=== PATIENT | female | born 1980 | race Caucasian/White ===

== ENCOUNTER 2017-01-08 19:44 | Emergency (ER) | payer SELFPAY ==
--- NOTE | 2017-01-08 21:19 | ED CLINICAL REPORT ---
Clinical Report - Physicians/Mid Levels [facility] [address] [place] [address] 01/08/2017 19:45 Patient: JUSTYNA BOONE Time Seen: 20:50. Arrived- By private vehicle. Historian- patient. HISTORY OF PRESENT ILLNESS Chief Complaint: SKIN RASH. This started yesterday Last night the patient noted a rash on the L chest. Today there is mild pain . She has had chicken pox as a young child. and is still present. It was gradual in onset. It is described as mildly painful. It has been located on the trunk. (Rash last night, a little tingling today). Similar symptoms previously: None. REVIEW OF SYSTEMS No fever, chills, sore throat, cough or difficulty breathing. No hoarseness. PAST HISTORY PCP: None Ops: None Hosp: CB Illness: None Have had chicken pox. SOCIAL HISTORY Runs a [employer]. ADDITIONAL NOTES The nursing notes have been reviewed. PHYSICAL EXAM Vital Signs: 01/08/2017 21:40 BP: 106/67. HR: 81. RR: 18. O2 saturation: 100%. Temp: 98.8 F. 01/08/2017 20:03 BP: 119/77. HR: 79. RR: 16. O2 saturation: 100%. Temp: 98.1 F. Pain level now: 0/10. Appearance: Alert. No acute distress. Respiratory: No respiratory distress. Breath sounds normal. Abdomen: Nontender. Skin: (Red papules without vessicles in a dermatomal distribution on the L chest.). PROGRESS AND PROCEDURES Course of Care: Will treat as herpes zoster and follow as course is atypical with rash before pain. Disposition: Discharged. CLINICAL IMPRESSION Herpes zoster (Left Trunk). INSTRUCTIONS (THIS IF QUITE LIKELY SHINGLES. 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 Prescription Medications: Acyclovir 800 mg: Take 1 orally every 4 hours (five times daily) for 10 days. No refill. Follow-up: Follow up with your doctor in five days. Understanding of the discharge instructions verbalized by patient. (Electronically signed by Power Tomlin MD 01/11/2017 22:52)
--- NOTE | 2017-01-08 21:19 | ED CLINICAL REPORT ---
Clinical Report - Physicians/Mid Levels [facility] [address] [place] [address] 01/08/2017 19:45 Patient: JUSTYNA BOONE Time Seen: 20:50. Arrived- By private vehicle. Historian- patient. HISTORY OF PRESENT ILLNESS Chief Complaint: SKIN RASH. This started yesterday Last night the patient noted a rash on the L chest. Today there is mild pain . She has had chicken pox as a young child. and is still present. It was gradual in onset. It is described as mildly painful. It has been located on the trunk. (Rash last night, a little tingling today). Similar symptoms previously: None. REVIEW OF SYSTEMS No fever, chills, sore throat, cough or difficulty breathing. No hoarseness. PAST HISTORY PCP: None Ops: None Hosp: CB Illness: None Have had chicken pox. SOCIAL HISTORY Runs a [employer]. ADDITIONAL NOTES The nursing notes have been reviewed. PHYSICAL EXAM Vital Signs: 01/08/2017 21:40 BP: 106/67. HR: 81. RR: 18. O2 saturation: 100%. Temp: 98.8 F. 01/08/2017 20:03 BP: 119/77. HR: 79. RR: 16. O2 saturation: 100%. Temp: 98.1 F. Pain level now: 0/10. Appearance: Alert. No acute distress. Respiratory: No respiratory distress. Breath sounds normal. Abdomen: Nontender. Skin: (Red papules without vessicles in a dermatomal distribution on the L chest.). PROGRESS AND PROCEDURES Course of Care: Will treat as herpes zoster and follow as course is atypical with rash before pain. Disposition: Discharged. CLINICAL IMPRESSION Herpes zoster (Left Trunk). INSTRUCTIONS (THIS IF QUITE LIKELY SHINGLES. 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 Prescription Medications: Acyclovir 800 mg: Take 1 orally every 4 hours (five times daily) for 10 days. No refill. Follow-up: Follow up with your doctor in five days. Understanding of the discharge instructions verbalized by patient. (Electronically signed by Power Tomlin MD 01/11/2017 22:52)
--- NOTE | 2017-01-08 21:20 | ED NURSING NOTES ---
Clinical Report - Nurses [facility] [address] [place] [address] 01/08/2017 19:45 Patient: MARIELA BOONE TRIAGE Triage time 20:03. Acuity: LEVEL 4. Chief Complaint: SKIN RASH and TENDER AREA and . Mariela reports she has had chicken pox when she was around 12 years old. She has never experienced a shingles episode. She presents to the ED with reddened area to L side of abdomen along dermatome. She states she noticed one red area last night, took Benadryl went to bed, and when she awoke this morning more red areas in that area. 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 Alert. No acute distress. SEPSIS SCREEN: Sepsis Screen: negative. Negative (no infection suspected/documented). --20:08 Evan Nolan R.N. 20:03 01/08/17. BP: 119/77 (regular adult cuff) taken on the left arm, via an automated monitor, while sitting. HR: 79 (normal rate). RR: 16 (regular, unlabored and normal). O2 saturation: 100% on room air. Temp: 98.1 F (oral). Pain level now: 0/10. --20:08 Evan Nolan R.N. Weight: 72.5 kg estimated. Height/Length: 62 inches Estimated. BMI: 29.3. --20:05 Evan Nolan R.N. Medications None. --20:06 Evan Nolan R.N. Medication/allergy information source: the patient. --20:08 Evan Nolan R.N. Allergies No Known Drug Allergy. --20:06 Evan Nolan R.N. History Arrived by private vehicle. Historian: patient. Unaccompanied. Primary physician (None). Location - abdomen. This started last night. Treatment PALM AND BACK FORGER: None. PAST MEDICAL HX: Last normal menstrual period- about 3-4 weeks ago. SOCIAL HX: Never smoker. Occasional alcohol use. No drug use. She has not traveled outside the [place] The patient was not exposed to MRSA. No infectious disease exposure. ABUSE ASSESSMENT: Abuse assessment: The patient was asked "Do you feel safe in your home?" and "Has anyone hurt you or threatened to hurt you?". No report of abuse. SELF HARM ASSESSMENT: A self harm assessment was performed. The patient answered "no" to the question "Do you have thoughts of harming or killing yourself?" and "Have you recently had thoughts about harming or killing others?". FALL RISK ASSESSMENT: Fall risk assessment completed. No fall risk identified. NUTRITIONAL RISK ASSESSMENT: The nutritional risk assessment revealed no deficiencies. FUNCTIONAL ASSESSMENT: Functional assessment: no impairments noted. LEARNING NEEDS ASSESSMENT: The learning needs assessment revealed no barriers. SKIN INTEGRITY ASSESSMENT: Skin integrity risk assessment completed. No skin integrity risk identified. --20:08 Evan Nolan R.N. Assessment GENERAL / NEURO / PSYCH: Alert. Oriented X 4. Appears in no acute distress. Chicken Coma Scale: 15- eyes open spontaneously (4); best verbal response- oriented x 4 (5); best motor response- obeys commands (6). Patient appears calm and cooperative. RESPIRATORY: Respirations not labored. SKIN: Skin is warm and dry. --20:08 Evan Nolan R.N. Interventions ID band on patient. To treatment room. --20:08 Evan Nolan R.N. Report given to the primary nurse. GARRET Alford. --20:13 Evan Nolan R.N. NURSING PROGRESS NOTES The initial plan of care for this patient has been created This plan of care was discussed with the patient. Patient gowned. Reassurance given to the patient. Two patient identifiers checked. Call light placed in reach. Side rails up x 1. Bed placed in lowest position. Brakes of bed on. Patient ready for evaluation- ED physician notified. --20:13 Evan Nolan R.N. DISPOSITION / DISCHARGE Departure time: 2140. No learning barriers present. Discharge instructions provided and reviewed with the patient. Reviewed warnings. Reviewed medication(s). Treatments reviewed. Reviewed referrals. Patient verbalized understanding. Written instructions provided in Guamanian. The patient was discharged by the physician. She was discharged home and accompanied by spouse. She left the Emergency Department ambulatory and via private vehicle. Family member driving. --21:42 Prashanth Zheng R.N. 21:40 01/08/17. BP: 106/67. HR: 81. RR: 18. O2 saturation: 100%. Temp: 98.8 F. Pain level now 0/10. --21:42 Prashanth Zheng R.N. Locked/Released at 01/08/2017 23:01 by Prashanth Zheng R.N.
--- NOTE | 2017-01-08 21:20 | ED NURSING NOTES ---
Clinical Report - Nurses [facility] [address] [place] [address] 01/08/2017 19:45 Patient: MARIELA BOONE TRIAGE Triage time 20:03. Acuity: LEVEL 4. Chief Complaint: SKIN RASH and TENDER AREA and . Mariela reports she has had chicken pox when she was around 12 years old. She has never experienced a shingles episode. She presents to the ED with reddened area to L side of abdomen along dermatome. She states she noticed one red area last night, took Benadryl went to bed, and when she awoke this morning more red areas in that area. 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 Alert. No acute distress. SEPSIS SCREEN: Sepsis Screen: negative. Negative (no infection suspected/documented). --20:08 Evan Nolan R.N. 20:03 01/08/17. BP: 119/77 (regular adult cuff) taken on the left arm, via an automated monitor, while sitting. HR: 79 (normal rate). RR: 16 (regular, unlabored and normal). O2 saturation: 100% on room air. Temp: 98.1 F (oral). Pain level now: 0/10. --20:08 Evan Nolan R.N. Weight: 72.5 kg estimated. Height/Length: 62 inches Estimated. BMI: 29.3. --20:05 Evan Nolan R.N. Medications None. --20:06 Evan Nolan R.N. Medication/allergy information source: the patient. --20:08 Evan Nolan R.N. Allergies No Known Drug Allergy. --20:06 Evan Nolan R.N. History Arrived by private vehicle. Historian: patient. Unaccompanied. Primary physician (None). Location - abdomen. This started last night. Treatment HAND BULLDOZER: None. PAST MEDICAL HX: Last normal menstrual period- about 3-4 weeks ago. SOCIAL HX: Never smoker. Occasional alcohol use. No drug use. She has not traveled outside the [place] The patient was not exposed to MRSA. No infectious disease exposure. ABUSE ASSESSMENT: Abuse assessment: The patient was asked "Do you feel safe in your home?" and "Has anyone hurt you or threatened to hurt you?". No report of abuse. SELF HARM ASSESSMENT: A self harm assessment was performed. The patient answered "no" to the question "Do you have thoughts of harming or killing yourself?" and "Have you recently had thoughts about harming or killing others?". FALL RISK ASSESSMENT: Fall risk assessment completed. No fall risk identified. NUTRITIONAL RISK ASSESSMENT: The nutritional risk assessment revealed no deficiencies. FUNCTIONAL ASSESSMENT: Functional assessment: no impairments noted. LEARNING NEEDS ASSESSMENT: The learning needs assessment revealed no barriers. SKIN INTEGRITY ASSESSMENT: Skin integrity risk assessment completed. No skin integrity risk identified. --20:08 Evan Nolan R.N. Assessment GENERAL / NEURO / PSYCH: Alert. Oriented X 4. Appears in no acute distress. [place] Coma Scale: 15- eyes open spontaneously (4); best verbal response- oriented x 4 (5); best motor response- obeys commands (6). Patient appears calm and cooperative. RESPIRATORY: Respirations not labored. SKIN: Skin is warm and dry. --20:08 Evan Nolan R.N. Interventions ID band on patient. To treatment room. --20:08 Evan Nolan R.N. Report given to the primary nurse. GARRET Alford. --20:13 Evan Nolan R.N. NURSING PROGRESS NOTES The initial plan of care for this patient has been created This plan of care was discussed with the patient. Patient gowned. Reassurance given to the patient. Two patient identifiers checked. Call light placed in reach. Side rails up x 1. Bed placed in lowest position. Brakes of bed on. Patient ready for evaluation- ED physician notified. --20:13 Evan Nolan R.N. DISPOSITION / DISCHARGE Departure time: 2140. No learning barriers present. Discharge instructions provided and reviewed with the patient. Reviewed warnings. Reviewed medication(s). Treatments reviewed. Reviewed referrals. Patient verbalized understanding. Written instructions provided in [place] Islander. The patient was discharged by the physician. She was discharged home and accompanied by spouse. She left the Emergency Department ambulatory and via private vehicle. Family member driving. --21:42 Prashanth Zheng R.N. 21:40 01/08/17. BP: 106/67. HR: 81. RR: 18. O2 saturation: 100%. Temp: 98.8 F. Pain level now 0/10. --21:42 Prashanth Zheng R.N. Locked/Released at 01/08/2017 23:01 by Prashanth Zheng R.N.
--- NOTE | 2017-01-11 22:53 | ED MAR SUMMARY ---
..... Medication Administration Record [facility] [address] [place], [place] [id number] Patient: JUSTYNA BOONE Visit ID: [id number] 36y, F Weight: 72.5 kg Height/Length: 62 in BMI: 29.3 ALLERGIES: No Known Drug Allergy
--- NOTE | 2017-01-11 22:53 | ED MAR SUMMARY ---
..... Medication Administration Record [facility] [address] [place], [place] [id number] Patient: JUSTYNA BOONE Visit ID: [id number] 36y, F Weight: 72.5 kg Height/Length: 62 in BMI: 29.3 ALLERGIES: No Known Drug Allergy
--- NOTE | 2017-01-11 22:53 | ED MED RECONCILIATION SUMMARY ---
Patient: JUSTYNA BOONE Medication Reconciliation Report [facility] VisitID: [id number] [address] [place] [address] 36y, F Registration Date/Time: 01/08/2017 Weight: 72.5 kg Height/Length: 62 in. BMI: 29.3 ALLERGIES: No Known Drug Allergy The patient's Home Medications are listed below: NONE. The source(s) of the original Home Medication information: patient The following Medications were given to the patient in the Emergency Department: None. The following Medications were prescribed to the patient: Acyclovir 800 mg: Take 1 orally every 4 hours (five times daily) for 10 days. No refill. -- Power Tomlin MD
--- NOTE | 2017-01-11 22:53 | ED MED RECONCILIATION SUMMARY ---
Patient: JUSTYNA BOONE Medication Reconciliation Report [facility] VisitID: [id number] [address] [place] [address] 36y, F Registration Date/Time: 01/08/2017 Weight: 72.5 kg Height/Length: 62 in. BMI: 29.3 ALLERGIES: No Known Drug Allergy The patient's Home Medications are listed below: NONE. The source(s) of the original Home Medication information: patient The following Medications were given to the patient in the Emergency Department: None. The following Medications were prescribed to the patient: Acyclovir 800 mg: Take 1 orally every 4 hours (five times daily) for 10 days. No refill. -- Power Tomlin MD
--- NOTE | 2017-01-11 22:53 | ED DISCHARGE INSTRUCTIONS ---
Patient: JUSTYNA BOONE General Instructions [facility] VisitID: [id number] [place] [address] 36y, F Registration Date/Time: 01/08/2017 Herpes zoster (Left Trunk). INSTRUCTIONS (THIS IF QUITE LIKELY SHINGLES. 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 Prescription Medications: Acyclovir 800 mg: Take 1 orally every 4 hours (five times daily) for 10 days. No refill. Follow-up: Follow up with your doctor in five days. Understanding of the discharge instructions verbalized by patient. ADDITIONAL INFORMATION Shingles Anyone who has had chicken pox may get shingles later in life. It is caused by the same virus that has remained dormant (asleep) in your body. Shingles usually occurs in adults over the age of 50 or those with lowered immunity (cancer treatment, prolonged steroid use, HIV or AIDS). It starts as a tingling patch of skin on one side of the body. During the first several days small painful blisters appear in this area. However, unlike chicken pox the rash does not spread to the rest of the body. The blister fluid contains the virus. Exposure to shingles cannot cause shingles. However, it can cause chicken pox in anyone who has never had chicken pox before. The contagious period ends when all blisters have crusted over (usually about two weeks after the illness begins). Scarring may occur where the blisters appear. Sometimes there is continued sensitivity and pain in the involved patch of skin for months after the infection (neuralgia). Persons older than 50 or those with a weakened immune system may be treated with antiviral medicines to reduce pain, shorten the illness and prevent neuralgia. Zostavax is a vaccine that can help prevent shingles or make it less painful. It is recommended for adults over the age of 60 who have had chicken pox in the past, but not shingles. Adults over 60 who have had neither chicken pox nor shingles can prevent both diseases with a Varicella vaccine. Home Care: You may use acetaminophen (Tylenol) or ibuprofen (Motrin, Advil) to control pain, unless another medicine was prescribed. [NOTE: If you have chronic liver or kidney disease or ever had a stomach ulcer or GI bleeding, talk with your doctor before using these medicines.] (Aspirin should never be used in anyone under 18 years of age who is ill with a fever. It may cause severe liver damage.) To relieve itching and pain, make a solution of cool water mixed with cornstarch, baking soda, Aveeno Oatmeal, or Domeboro powder (available without a prescription). Apply the solution as a compress to the area. This will soothe the skin. Calamine or Caladryl lotion may help. Oral Benadryl (diphenhydramine) is an antihistamine available at drug and grocery stores. Unless a prescription antihistamine was given, Benadryl may be used to reduce itching if large areas of the skin are involved. Use lower doses during the daytime and higher doses at bedtime since the drug may make you sleepy. [NOTE: Do not use Benadryl if you have glaucoma or if you are a man with trouble urinating due to an enlarged prostate.] Claritin (loratidine) is an antihistamine that causes less drowsiness and is a good alternative for daytime use. Wash skin with soap and water to keep rash free of infection. Trim fingernails to prevent scratching. Scratching the sores may leave scars. Stay home from work or school until all blisters have formed a crust and you are no longer contagious. Follow Up with your doctor or as directed by our staff if the above measures do not bring relief. GET PROMPT MEDICAL ATTENTION if any of the following occur: Headache or stiff neck Increasing drowsiness, confusion or bizarre behavior Cough with trouble breathing or fast breathing (over 25 breaths per minute) Pain, redness or swelling of a joint Fever of 100.4F (38C) or higher, or as directed by your healthcare provider Eye pain or changes in vision or sores that appear near the eye Signs of skin infection (yellow or white drainage from the sores, increasing redness or pain) Weakness or numbness of an arm or leg Difficulty speaking, swallowing or walking Seizure You have been given the following additional information: Herpes Zoster (Electronically signed by Power Tomlin MD 01/11/2017 22:52)
== END 2017-01-08 21:41 | disposition home or self-care (01) ==
LOC: ED SRH 19:44
DX: B02.9 Zoster without complications (principal)